=== PATIENT | male | born 1960 | race Caucasian/White ===

== ENCOUNTER 2024-12-05 06:55 | Day surgery (SDC) | payer BC, SELFPAY ==
[2024-12-05] VITALS (8 sets, daily range): BP systolic 128–134; BP diastolic 64–85; PULSE 65–85; RESP 14–18; TEMP 36–36.3; O2SAT 92–97; BMI 29.0
--- NOTE | 2024-12-05 | MASS_PTH ---
PATIENT: LARS PLUMMER LOC: EN U#:[id number] AGE/SX: 64/M ROOM: RE12/05/[address]: Dr. Erik Mosquera MD : 1960 BED: DIS: 12/05/2024 SPEC #: [id number] RECD: 12/05/24 12:29 STATUS: [place] REMary #: [id number] DEBRA: 12/05/24 00:[address]: Erik Mosquera DEPT: SURGICAL PATHOLOGY RECD BY: Zhang Bojorquez ENTERED: 12/05/24 12:30 SP TYPE: Mass OTHR DR: Dr. Varghese Oliver MD Tissues: Rectum, NOS Procedures: Immunohistochemical Stains Surgery Specimen Level IV IHC Stain ADDITIONAL HEADER OPERATION: Colonoscopy with biopsy PRE-OP DIAGNOSIS: Rectal bleeding TISSUE SUBMITTED: Rectal mass biopsy MICROSCOPIC DIAGNOSIS RECTAL MASS, BIOPSY: * Adenocarcinoma. * Mismatch Repair Protein (MMR) Nuclear Expression by IHC: * ? MLH1: ?Present/intact * ? PMS2: ?Present/intact * ? MSH2: ?Present/intact * ? MSH6: ?Present/intact * * IHC Interpretation: * No loss of nuclear expression of MMR proteins: low probability of microsatellite instability-high (MSI-H)# * * # There are exceptions to the above IHC interpretations. These results should not be considered in isolation, and clinical correlation with genetic counseling is recommended to assess the need for germline testing. * * All controls show appropriate reactivity. * MICROSCOPIC DESCRIPTION Slides are reviewed. These tests were developed and their performance characteristics determined by [facility]. They may not have been cleared or approved by the U.S. Food and Drug Administration. The FDA has determined that such clearance or approval is not necessary. The above immunohistochemical/dualISH markers are ordered and reviewed by the Pathologist. GROSS DESCRIPTION Received in fixative is one container labeled with the patient's name and designated Rectal mass biopsy. The specimen consists of multiple irregular fragments of light de oliveira soft tissue that in aggregate measure 2.4 x 0.3 x 0.2 cm. The specimen is totally submitted in one cassette. 12/05/2024 [facility]:[id number] ADDENDUM ADDENDUM ADDENDUM ADDENDUM ADDENDUM ADDENDUM ADDENDUM ADDENDUM ADDENDUM ADDENDUM ADDENDUM ADDENDUM ADDENDUM ADDENDUM ADDENDUM ADDENDUM ADDENDUM ADDENDUM ADDENDUM ADDENDUM ADDENDUM ADDENDUM ADDENDUM ADDENDUM ADDENDUM 01/23/2025 12:36 ADDENDUM 01/23/2025 12:36 ADDENDUM 01/23/2025 12:36 ADDENDUM 01/23/2025 12:36 ADDENDUM 01/23/2025 12:36 This addendum is added to incorporate an outside pathology consultation report. The case was examined at [facility] by Dr. Yan (#[id number]) and the following diagnosis was rendered. Mismatch Repair Proteins by IHC Report: MMR INTERPRETATION: Cannot be interpreted MLH 1 IMMUNOHISTOCHEMICAL RESULTS: Normal/Intact Nuclear Expression PMS2 IMMUNOHISTOCHEMICAL RESULTS: Equivocal MSH2 IMMUNOHISTOCHEMICAL RESULT: Normal/Intact Nuclear Expression MSH6 IMMUNOHISTOCHEMICAL RESULT: Normal/Intact Nuclear Expression MLH1 PROMOTER METHYLATION ANALYSIS: No TUMOR TYPE: Primary Colorectal Adenocarcinoma Please see complete above mentioned consultation report in EMR
[2024-12-05 07:46] LABS: Bedside Glucose 175 mg/dL (74-106)
--- NOTE | 2024-12-05 07:46 | PCM.PRE.AN2 ---
ASA Classification* ASA Classification ASA Classification: 2 Assessment & Plan Anesthesia* Anesthesia Assessment Anesthesia Assessment: Discussed sedation and/or anesthesia options, risks, benefits, and alternatives with patient/parents/legal guardian/POA. Questions invited. The patient/parents/legal guardian/POA seems to understand and agrees to proceed with anesthesia plan. Reviewed the physical assessment, medical history, allergy history and patient home medications list prior to surgery/procedure/anesthetic and documented any changes. Performed airway and anesthesia risk assessments. Anesthesia Type Anesthesia Type: General History Source History Obtained from:: Patient Anesthesia Focused Assessment* Temperature: 97.4 F Pulse Rate: 85 Blood Pressure: 134/84 Respiratory Rate: 18 Pulse Ox: 97 Oxygen Delivery Method: Room Air Airway Assessment Mouth opens: >3 cm Mallampati Score: III Teeth Condition: Dentures (upper & lower) Neck Range of motion (ROM): Full ROM Focused Labs Anesthesia Preop lab: CBC CHEMISTRY POC Glucose 175 mg/dL (74-106) H 12/05/24 07:21 12/05/24 COAG Pre-Assessment Diagnosis/Proposed Procedure Planned Operative Procedure(s): COLONOSCOPY Anesthesia History 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 When Was Last Pacemaker Check QUESTION #4 FULL TEXT: You/Your Family Experience fever (hyperthermia) with Anesthesia Any additional information?: No Last Oral Intake Last Oral intake: Last Oral Intake NPO since 22:00 12/05/24 07:18 Meds taken in AM with sips of No 12/05/24 07:18 water? Meds patient instructed to take am of surgery Any additional information?: No PONV PONV - room service waiter/waitress: PONV - room service waiter/waitress Female No 12/01/24 15:31 HX of Motion Sickness No 12/01/24 15:31 HX of N/V After Surgery No 12/01/24 15:31 Non-Smoker Yes 12/01/24 15:31 Duration of Surgery greater No 12/01/24 15:31 than 60 minutes Number of Risk Factors 1 12/01/24 15:31 PONV Score Low Risk 12/01/24 15:31 Any additional information?: No Height & Weight Height & Weight: Anesthesia: Height & Weight Height 5 ft 10 in 12/05/24 07:18 Weight: 92 kg 12/05/24 07:18 Body Mass Index (BMI) 29.0 12/05/24 07:18 Respiratory Assessment Respiratory Assessment - room service waiter/waitress: Respiratory Tract Infection Hx - room service waiter/waitress Hx Respiratory Tract Infection No 12/01/24 15:31 Any additional information?: No STOP Sleep Apnea STOP Sleep Apnea - room service waiter/waitress: STOP Sleep Apnea - room service waiter/waitress Hx Hypertension Yes: CONTROLLED ON MED 12/01/24 15:31 Hx Sleep Apnea No 12/01/24 15:31 CPAP BIPAP Do you snore loudly (louder No 12/01/24 15:31 than talking or can be heard Do you often feel tired/ No 12/01/24 15:31 fatigued/ sleepy during daytime? Has anyone observed you stop No 12/01/24 15:31 breathing during sleep? STOP Results Negative 12/01/24 15:31 QUESTION #5 FULL TEXT : Do you snore loudly (louder than talking or can be heard through closed doors)? Any additional information?: No Tobacco Use History Tobacco Use History - room service waiter/waitress: Tobacco Use History - room service waiter/waitress Tobacco Use Smoking Status Former smoker 12/01/24 15:31 Hx Tobacco Use No 12/01/24 15:31 Years Smoking Packs Smoked per Day Smoking Cessation Date was Yes - quit smoking within 15 12/01/24 15:31 within the last 15 years years Hx Smoking Cessation Date Hx Smoking Cessation Counseling Any additional information?: No Hematologic Medial History Hematologic Hx - room service waiter/waitress: Hematologic Medical Hx - documentation supervisor Hx of Blood Transfusion No 12/01/24 15:31 Hx of Transfusion in last 3 No 12/01/24 15:31 Months Date of Last Transfusion (if within last 3 months) Ever experience any problems No 12/01/24 15:31 with transfusion(s)? Specify any problems Hx of Preganancy in last 3 N/A 12/01/24 15:31 Months Nurse Filling Out Transfusion VCHRISTIN 12/01/24 15:31 & Questions: Date: 12/01/24 12/01/24 15:31 Time: 15:32 12/01/24 15:31 Patient unable to answer at this time (ie. confused, unrespo Any additional information?: No /Reproduction History /Reproductive History - room service waiter/waitress: /Reproductive Hx- room service waiter/waitress Hx Now Gestational Age (in weeks): EDC: Hx Hx Para Hx Section SAB Any additional information?: No [facility] Medical History Wears dentures Wears glasses Alcohol use Kidney stones Injury of head and neck Former smoker History of stress test Hypertension Diabetes Abdominal pain Hemorrhoids Blood in stool Rectal bleeding Home Medications ?Medication ?Instructions ?Recorded ?Last Taken ?Type atorvastatin 20 mg tablet 20 mg PO QHS 11/29/24 Unknown History finasteride 5 mg tablet 5 mg PO QDAY 11/29/24 Unknown History glipizide 5 mg tablet 5 mg PO QDAY 11/29/24 Unknown History lisinopril 10 mg tablet 10 mg PO QDAY 11/29/24 Unknown History pioglitazone 30 mg tablet 30 mg PO DAILY 11/29/24 Unknown History sildenafil (pulm.hypertension) 20 60 - 100 mg PO QDAY PRN ED 11/29/24 Unknown History mg tablet Allergy/AdvReac Type Severity Reaction Status Date / Time No Known Allergies Allergy Verified 12/05/24 07:17 Surgical History Hx of hernia repair Hx of cholecystectomy Social History Smoking Status: Former smoker quit date: 10/28/23 alcohol intake: never substance use type: does not use Review of Systems (Anesthesia) ROS Narrative System reviewed and no additional complaints, except as documented. Physical Exam Const alert and oriented x3 Resp normal respiratory effort, normal air movement and clear to auscultation bilaterally Cardio regular rate, regular rhythm, no murmurs and diaphoretic
--- NOTE | 2024-12-05 08:18 | PCM.HP.STD ---
HPI - General General Date of Admission: 12/05/24 Date of Service: 12/05/24 Chief Complaint: colonoscopy -- rectal bleeding / ? mass HPI Narrative The patient is a 64-year-old male who is being seen today for a colonoscopy. He presented to his primary care provider yesterday with complaints of rectal pain and bleeding. On examination there was concern for possible anal rectal mass. He has never had a colonoscopy. He had a normal Cologuard performed about 2 years ago. He denies any family history of colon polyps or colon cancers. He states that this pain and bleeding has been present for the past few months. [facility] Medical History Wears dentures Wears glasses Alcohol use Kidney stones Injury of head and neck Former smoker History of stress test Hypertension Diabetes Abdominal pain Hemorrhoids Blood in stool Rectal bleeding Home Medications ?Medication ?Instructions ?Recorded ?Last Taken ?Type atorvastatin 20 mg tablet 20 mg PO QHS 11/29/24 Unknown History finasteride 5 mg tablet 5 mg PO QDAY 11/29/24 Unknown History glipizide 5 mg tablet 5 mg PO QDAY 11/29/24 Unknown History lisinopril 10 mg tablet 10 mg PO QDAY 11/29/24 Unknown History pioglitazone 30 mg tablet 30 mg PO DAILY 11/29/24 Unknown History sildenafil (pulm.hypertension) 20 60 - 100 mg PO QDAY PRN ED 11/29/24 Unknown History mg tablet Allergy/AdvReac Type Severity Reaction Status Date / Time No Known Allergies Allergy Verified 12/05/24 07:17 Surgical History Hx of hernia repair Hx of cholecystectomy Social History Smoking Status: Former smoker quit date: 10/28/23 alcohol intake: never substance use type: does not use Vital Signs Vital Signs Vital Signs: 12/05/24 07:18 12/05/24 07:18 12/05/24 07:52 Temperature 97.4 F L 97.4 F L Temperature Source Temporal Pulse Rate 85 85 Respiratory Rate 18 18 Respiratory Pattern Normal Blood Pressure 134/84 H 134/84 H Blood Pressure Mean 100 Blood Pressure Source Monitor Blood Pressure Position Sitting Blood Pressure Location Right Arm Pulse Ox 97 97 Oxygen Delivery Method Room Air Room Air Weight Weight: 202 lb 13.204 oz Body Mass Index (BMI) 29.0 Physical Exam Const alert, oriented x3 and no apparent distress Results Lab / Micro Data Labs: Laboratory Results - last 24 hr 12/05/24 07:21: POC Glucose 175 H Assessment & Plan Assessment/Plan (1) Rectal bleeding: PLAN: Plan The patient is a 64-year-old male with recent rectal pain and bleeding. There was question of rectal mass on exam. Patient presents for colonoscopy.
--- NOTE | 2024-12-05 09:10 | OP.CCLET_ITS ---
12/05/2024 Varghese Oliver Re : Colonoscopy procedure for Iban Calvert Benito This procedure was performed on Thursday, December 05, 2024. My impressions and recommendations are as follows: Impressions : - Rectal mass 0 to 7 cm from the anal verge. 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 Biopsied. - The examination was otherwise normal. Recommendations : - Discharge patient to home (ambulatory). - High fiber diet. - Await pathology results. - Repeat colonoscopy in 1 year for surveillance. - Return to my office in 1 week. - Refer to a colo-rectal surgeon at appointment to be scheduled. - Continue present medications. My findings are described in the full procedure note, which is enclosed. If I can be of further assistance, please feel free to contact me at . Sincerely, Erik Mosquera MD 12/05/2024 9:10:16 AM This report has been signed electronically.
--- NOTE | 2024-12-05 09:10 | OP.COLON_ITS ---
Patient Name: Iban Simpson Procedure Date: 12/05/2024 8:18 AM Date of : 1960 Age: 64 Procedure: Colonoscopy Indications: Rectal mass Providers: Erik Mosquera MD Medicines: Monitored Anesthesia Care Patient Profile: Refer to note in patient chart for documentation of history and physical. Last Colonoscopy: none. The patient's first colonoscopy is today. Patient has symptoms of acute episode of bloody stool. Complications: No immediate complications. Estimated blood loss: Minimal. Procedure: Pre-Anesthesia Assessment: - Prior to the procedure, a History and Physical was performed, and patient medications and allergies were reviewed. The patient's tolerance of previous anesthesia was also reviewed. The risks and benefits of the procedure and the sedation options and risks were discussed with the patient. All questions were answered, and informed consent was obtained. Prior Anticoagulants: The patient has taken no anticoagulant or antiplatelet agents. ASA Grade Assessment: II - A patient with mild systemic disease. After reviewing the risks and benefits, the patient was deemed in satisfactory condition to undergo the procedure. After I obtained informed consent, the scope was passed under direct vision. Throughout the procedure, the patient's blood pressure, pulse, and oxygen saturations were monitored continuously. The adult colonoscope was introduced through the anus and advanced to the cecum, identified by appendiceal orifice and ileocecal valve. The ileocecal valve, appendiceal orifice, and rectum were photographed. The entire colon was well visualized. Moderate Sedation: See the other procedure note for documentation of moderate sedation with intraservice time. Scope In: 8:31:57 AM Scope Withdrawal Time 0 hours 11 minutes 24 seconds Scope Out: 9:01:34 AM Total Procedure Duration Time 0 hours 29 minutes 37 seconds Findings: The digital rectal exam revealed a 7 cm (diameter) firm rectal mass palpated 1 to 7 cm from the anal verge. The mass was non-circumferential and located predominantly at the posterior bowel wall. A fungating non-obstructing medium-sized mass was found in the rectum. The mass was non-circumferential. The mass measured seven cm in length. No bleeding was present. Biopsies were taken with a cold forceps for histology. Verification of patient identification for the specimen was done by the nurse using the patient's name, date and medical record number. Estimated blood loss was minimal. The exam was otherwise without abnormality. Impression: - Rectal mass 0 to 7 cm from the anal verge. 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 Biopsied. - The examination was otherwise normal. Recommendation: - Discharge patient to home (ambulatory). - High fiber diet. - Await pathology results. - Repeat colonoscopy in 1 year for surveillance. - Return to my office in 1 week. - Refer to a colo-rectal surgeon at appointment to be scheduled. - Continue present medications. Procedure Code(s): --- Professional --- 46214, Colonoscopy, flexible; with biopsy, single or multiple Diagnosis Code(s): --- Professional --- C20, Malignant neoplasm of rectum K62.89, Other specified diseases of anus and rectum CPT copyright 2021 [employer]. All rights reserved. The codes documented in this report are preliminary and upon signal engineer review may be revised to meet current compliance requirements. Erik Mosquera MD 12/05/2024 9:10:16 AM This report has been signed electronically. Number of Addenda: 0 Note Initiated On: 12/05/2024 8:18 AM
--- NOTE | 2024-12-05 09:15 | PCM.POST.ANE ---
Anesthesia: Postop Eval I Current Vital Signs Temperature: 97 F Pulse Rate: 79 Blood Pressure: 128/64 Respiratory Rate: 16 Pulse Ox: 93 Oxygen Delivery Method: Room Air Assessment Airway patent: Yes Spontaneous unlabored respirations: Yes Mental status: Asleep nausea: No Vomiting: No Anesthesia Complication: No Fluid Hydration Crystalloid volume administer (ml): 80 Total IV fluid infused: 80 Progress Note Anesthesia document: Postop Eval 1 completed: Yes
--- NOTE | 2024-12-05 09:41 | PCM.POSTANE2 ---
Anesthesia Postop Eval I Sum Postop Eval Completion status Anesthesia document: Postop Eval 1 completed: Yes Anesthesia Postop Eval I Summary Anesthesia Postop Eval I Summary: Anesthesia Postop Eval I: Assessment Summary Airway patent Yes 12/05/24 09:16 [email or web address] Spontaneous unlabored Yes 12/05/24 09:16 [email or web address] respirations Mental status Asleep 12/05/24 09:16 [email or web address] nausea No 12/05/24 09:16 [email or web address] Vomiting No 12/05/24 09:16 [email or web address] Anesthesia Postop Eval I: Fluid Summary Crystalloid volume administer 80 12/05/24 09:16 [email or web address] (ml) Colloids volume administered ( ml) Blood Product volume administered (ml) Total IV fluid infused 80 12/05/24 09:16 [email or web address] Anesthesia Postop Eval I: Summary Notes Anesthesia Complication No 12/05/24 09:16 [email or web address] Anesthesia Complication Comment: Post-operative progress note Anesthesia: Postop Eval II Evaluation Mental status: Awake and Calm Pain Level: 0 nausea: No Vomiting: No Complications Anesthesia Complication: No
== END 2024-12-05 10:11 | disposition home or self-care (01) ==
LOC: EN 06:57 → AC 06:59
PROVIDERS: PCP Family Medicine; Referring Provider Family Medicine; Visit Provider Surgery
PROC: 0DJD8ZZ Inspection of Lower Intestinal Tract, Via Natural or Artificial Opening Endoscopic (ICD-10-PCS; CPT 45378; principal; 2024-12-05 08:10)
DX: K62.5 Hemorrhage of anus and rectum (principal); C20 Malignant neoplasm of rectum; E11.9 Type 2 diabetes mellitus without complications; Z79.84 Long term (current) use of oral hypoglycemic drugs; I10 Essential (primary) hypertension; Z87.891 Personal history of nicotine dependence; Z79.899 Other long term (current) drug therapy; Z90.49 Acquired absence of other specified parts of digestive tract
CPT/HCPCS: 45380; 82962; 88305; 88341; 88342; A4216; J2405